=== PATIENT | male | born 1990 | race Caucasian/White ===

== ENCOUNTER 2023-07-26 12:47 | Emergency (ER) | payer OTHER ==
[~2023-07-26] VITALS: Ht 182.9 cm; Wt 108.9 kg
[2023-07-26] MEDS ORDERED: HYDROCODON-ACE1 EA11 PO (14:06)
[2023-07-26 14:35] VITALS: BP 132/67
== END 2023-07-26 15:02 | disposition home or self-care (01) ==
LOC: ED 12:47
DX: S83.92XA Sprain of unspecified site of left knee, initial encounter (principal); X50.1XXA Overexertion from prolonged static or awkward postures, initial encounter
CPT/HCPCS: 73560; J1170; J1885